=== PATIENT | female | born 1955 | race Caucasian/White ===

== ENCOUNTER 2025-02-26 13:41 | Outpatient (REF) | payer OTHER, SELFPAY ==
--- NOTE | ~2025-02-26 | XR_ITS ---
EXAMINATION: XR ENTIRE SPINE 1 VIEW HISTORY: SCOLIOSIS COMPARISON: There are no prior studies available for comparison. FINDINGS: A single AP view of the thoracolumbar spine is submitted for determination of scoliosis. There is levoscoliosis from T9 through T11 measuring approximately 7.1 degrees and dextroscoliosis from L1 through L3 measuring approximately 9.7 degrees. XR/XR scoliosis survey IMPRESSION: Scoliosis measurements as described. Electronically signed by: Renny Paulino MD 02/26/2025 02:17 PM RAFAEL ISLAS
--- OUTSIDE RECORDS SUMMARY | 2025-02-26 16:45 | XMS_ITS | Encounter Summary ---
Author Organization [facility] [place] [address] Care Team Providers Care Coremaker Supervisor Name Role Phone Physician, No Pcp Primary Care Provider Unavaila ble Encounter Details Date Type Department Care Team (Late st Contact Info) Description 01/30/2025 Results Follow-Up Endocrinology - [address] [phone] Rafael Morris MD [address] [place] [address] Social History Tobacco Use Types Packs/Day Years Used Date Smoking Tobacco: Former Cigarettes Q uit: 10/06/2019 Smokeless Tobacco: Never Alcohol Use Standard Drinks/Week Comments No 0 (1 standard drink = 0.6 oz pur e alcohol) Comments Unknown Sex and Gender Information Value Date Recorded Sex Assigned at Female 06/24/2021 10:27 PM EST Legal Sex Female 9:00 PM EST Gender Identity Female 06/24/2021 10:27 PM EST Sexual Orientation Straight 08/19/2024 9: 20 AM EDT documented as of this encounter Plan of Treatment Upcoming Encounters Date Type Department Care Team (Late st Contact Info) Description 03/17/2025 3:00 PM EST Office Visit Endocrinology - [place] [address] [place], [place] [phone] Mona Coombs MD [address] [place], [place] 05/01/2025 1:00 PM EST Office Visit Gastroenterology - [address] [place] [address] Linda Rhoades PA [address] [place] [phone] documented as of this encounter Visit Diagnoses Not on filedocumented in this encounter Care Teams Coremaker Supervisor Relationship Specialty Start Date End Date Physician, No Pcp PCP - General 05/14/24 documented as of this encounter
--- OUTSIDE RECORDS SUMMARY | 2025-02-26 16:45 | XMS_ITS ---
Author Name [facility] Organization Unknown Care Team Organization Name Specialty Phone Email Start Date End Da te [facility] 02/28/2022 12/10/19 24
--- OUTSIDE RECORDS SUMMARY | 2025-02-26 16:45 | XMS_ITS | Clinical Summary ---
Author Organization [facility] Address [address] [place] [address] Care Team Providers Care Java J2Ee Lead Name Role Phone Physician, No Pcp Primary Care Provider Unavaila ble Allergies Active Allergy Reactions Criticality Noted Date Comments Bupropion 12/05/2012 Other Reaction(s): UNK Ezetimibe High 06/23/2014 Other Reaction(s): FLU LIKE, Myalgia and Joint Pain Gabapentin High 12/05/2012 Other Reaction(s): UNK Nsaids (Non-Steroidal Anti-Inflammatory Drug) High 04/25/2022 Other Reaction(s): ITCHY Penicillins Anaphylaxis High 12/05/2012 Pregabalin 12/05/2012 Other Reaction(s): UNK Simvastatin 10/03/2013 Other Reaction(s): FLU LIKE, Myalgia and Joint Pain Sulfa (Sulfonamide Antibiotics) 12/05/2012 Varenicline 12/05/2012 Other Reaction(s): UNK Medications hydrocortisone 0.5 % topical cream Apply 1 Inch topically 2 times daily for 360 days. 4 Active levothyroxine (SYNTHROID, LEVOTHROID) 50 mcg tablet Take 1 tablet (50 mcg total) by mouth 1 (one) time each day before breakfast. 90 tablet 3 5 Active traZODone (DESYREL) 50 mg tablet Take 1 tablet (50 mg total) by mouth. at bedtime 5 Active linaCLOtide (Linzess) 290 mcg capsuleIndications :Irritable bowel syndrome with constipation Take 1 capsule (290 mcg total) by mouth 1 (one) time each day before breakfast. 90 each 3 5 10/30/19 26 Active evolocumab (Repatha SureClick) 140 mg/mL pen injector injectionIndicatio ns:Mixed hyperlipidemia Inject 1 mL (140 mg total) under the skin every 14 (fourteen) days. 6 mL 3 5 Active Active Problems Problem Noted Date Diagnosed Date Elevated coronary artery calcium score Assessment & Plan (01/19/2025 1:43 PM EDT): CT coronary calcium score in May 2024 was 55.4 (55.3 in the left anterior descending) which represents mild evidence of coronary artery disease. She denies anginal symptoms. Continue with aggressive risk factor modification. BP is robust in the office today, likely from use of Sudafed. Recommended switching to an allergy medication that will have less BP effect, such as Claritin. She reports BP is generally better controlled. Recommend continued monitoring. Adverse effect of drug 10/21/2024 Overview (10/21/2024): Trazodone (unclear reaction), baclofen, cyclobenzaprine, gabapentin, pregabalin (hand and foot swelling) Complex regional pain syndrome type 2 of lower e xtremity 10/21/2024 Paresthesia 10/21/2024 Overview (10/21/2024): History of Pain of right lower extremity 10/21/2024 Pain in the coccyx 10/21/2024 Thoracic back pain 10/21/2024 Irritable bowel syndrome with constipation 04/28 Assessment & Plan (10/29/2024 1:28 PM EDT): Improved although patient requesting Linzess [address] of the 145 mcg Orders: linaCLOtide (Linzess) 290 mcg capsule; Take 1 capsule (290 mcg total) by mouth 1 (one) time each day before breakfast. Assessment & Plan (07/28/2024 4:56 PM EDT): Starting Linzess 145 mcg. Potential side effects reviewed. Orders: linaCLOtide (Linzess) 145 mcg capsule; Take 1 capsule (145 mcg total) by mouth 1 (one) time each day before breakfast. Assessment & Plan (04/28/2024 1:30 PM EST): Acute on chronic RUQ pain/burn. Will obtain CT since last on 2021 and prior to last hernia repair. Rule out recurrent hernia, etc. Suspect symptom functional, due to adhesions or possible nerve related. Discussed trial amitriptyline if CT unremarkable. Cont daily prunes for constipation. Colon polyps 04/28/2024 Epigastric pain 03/26/2024 TBI (traumatic brain injury) (CMS/HCC V24, CMS/H CC V28) 03/26/2024 Overview (03/26/2024): ~2004- fall onto coccyx which broke then stood and passed out = suffered brain injury Subclinical hypothyroidism 11/08/2022 Assessment & Plan (07/17/2024 9:32 AM EDT): Patient reported symptoms of unintentional weight loss and night sweats. She does have a history of subclinical hypothyroidism on levothyroxine. Thyroid panel has been ordered. No change to medical therapy for now. Orders: Thyroid stimulating hormone with reflex to free t4 and free t3; Future Bradycardia 05/23/2022 Overview (03/26/2024): Last Assessment & Plan: She has chronic bradycardia for quite a few years and Holter monitor back to 2014 demonstrated average heart rate of 52 and minimal heart rate of 35. There was no other conduction disorder by EKG. I would like to repeat another Holter monitor. She has been using [employer] to record pulse rate and EKGs. Of note, her TSH has been chronically elevated. Is not clear whether she has chronic subclinical hypothyroidism. I will repeat another thyroid profile. Assessment & Plan (04/29/2024 12:53 PM EST): No obvious symptoms. Will continue to monitor heart rate and symptoms. Orders: ECG 12 lead Dyspnea 05/19/2022 Syncope 05/19/2022 Overview (03/26/2024): Last Assessment & Plan: I suspect the syncope was caused by combination of poor oral intake and vasodilation with hot shower. She also has a borderline bradycardia. By physical exam, she does not have a structural heart disease but would like to arrange echocardiogram. Left ovarian cyst 10/06/2021 Elevated TSH 07/12/2017 Hyperlipidemia 07/12/2017 Overview (03/26/2024): 10 year ASCVD =11% 06/22/18- working on quitting smoking/diet - holding on statin tx Last Assessment & Plan: Her LDL has been persistently high for past 3 years with highest level of over 200. Most recent LDL was 182. 10-year ASCVD risk is 7.4%. I would propose to start statin which can reduce the risk to 5.6%. She is getting nicotine patch currently hoping to quit smoking eventually. Assessment & Plan (01/19/2025 1:38 PM EDT): Last lipid panel reviewed and under excellent control with an LDL of 69 and total cholesterol of 145. Continue Repatha as prescribed. Continue with efforts to follow a low fat, heart healthy diet, increase exercise and maintain a healthy weight to maximize risk reduction. Assessment & Plan (07/17/2024 9:32 AM EDT): Patient has been intolerant to statins and Zetia in the past. Most recent lipid panel from September 2023 showed an LDL of 101. Goal LDL for patients with a history of CAD is <70. According to the [employer] 10-year ASCVD risk calculator, patient has a 10.6% (intermediate) risk. We discussed options of bempedoic acid and red rice yeast. We will start first with updating a lipid panel and I will contact the patient once results are received. Orders: Lipid panel with reflex to direct LDL; Future Assessment & Plan (04/29/2024 12:53 PM EST): Could not tolerate statins unfortunately. Will obtain coronary artery calcium score for further risk stratification. Orders: CT Heart Calcium Scoring wo Contrast; Future Chronic pain disorder 03/30/2017 GERD (gastroesophageal reflux disease) 7 Pulmonary nodules 03/30/2017 Left hip pain 10/10/2016 Depression with anxiety 09/15/2016 Degenerative disc disease, lumbar 03/10/2016 Vitamin D deficiency 07/13/2015 Low back pain 07/01/2015 Reflex sympathetic dystrophy 02/26/2015 Insomnia 11/12/2014 Encounters Date Type Department Care Team Description 01/30/2025 Results Follow-Up Endocrinology - [place] [address] [place] [phone] Rafael Morris MD 01/29/2025 1:38 PM EDT - 01/29/2025 11:59 PM EDT Hospital Encounter Ultrasound - [facility] [address] [place] [phone] Hypothyroidism, unspecified type Discharge Disposition: Home or Self Care 01/20/2025 1:30 PM EDT Office Visit Endocrinology - [place] [address] [place] [address] Rafael Morris MD Hypothyroidism, unspecified type (Primary Dx) 01/19/2025 1:10 PM EDT Office Visit [facility] - [facility] [address] [facility] [address] [place] [phone] Polly Vinson NP Hyperlipidemia, unspecified hyperlipidemia type (Primary Dx); Elevated coronary artery calcium score from Last 3 Months Immunizations Immunization Administration Dates Next Due COVID-19 (Moderna/Spikevax) 12yo and older 02/11/2023 Influenza Quadravalent, 0.5m l (Fluzone High-dose) 65yo and older 01/02/2023,01/09/2022,02/21/2021 Influenza Quadrivalent, 0.5m l, preservative free (Fluarix; FluLaval; Fluzone) ages 6mo and older (Afluria) 3yo and older 02/14/2018 Influenza trivalent, 0.5mL ( Fluzone High-dose) 65yo and older 03/10/2024 Influenza trivalent, 0.5mL, preservative free (Fluarix; FluLaval; Fluzone) ages 6mo and older (Afluria) 3 years and older 01/21/2018,01/23/2015 Influenza trivalent, MDCK, 0 .5mL, preservative free (Flucelvax) 6mo and older 04/26/2013 Influenza trivalent, with preservative (Fluzone; Afluria) 6mo and older 01/21/2018,01/20/2014,01/19/2014,2009 Influenza, Unspecified 02/20/2023 Influenza, live, intranasal, quadrivalent (FluMist) 2yo to less than 50yo 03/30/2017 Moderna SARS-CoV-2 COVID-19, mRNA, LNP-S, preservative free 08/31/2020 Pfizer SARS-CoV-2 COVID-19, mRNA, LNP-S, preservative free 02/27/2023 Pneumococcal conjugate 20 va lent (Prevnar 20, PCV 20) 2mo and older 02/27/2023,01/02/2023 RSV, bivalent, protein subun it RSVpreF, 0.5mL, Preservative Free (Arexvy) 50yo and older 01/02/2023 Surgical History Surgery Date Site/Laterality Comments CHOLECYSTECTOMY PROCEDURE: HISTORICAL CHOLECYSTECTOMY APPENDECTOMY PROCEDURE: HISTORICAL APPENDECTOMY UPPER GASTROINTESTINAL ENDOSCOPY 04/06/2014 PROCEDURE: CT UPPER GI ENDOSCOPY PERFORMED; COMMENT: small hiatal hernia, gastric bx no path change - Dr. Watkins OTHER SURGICAL HISTORY PROCEDURE: CT LAPS FULG/EXC OVARY VISCERA/PERITONEAL SURFACE; COMMENT: Ovarian cystectomy BILATERAL SALPINGOOPHORECTOMY 10/21/2021 - 11/20/2021 COLONOSCOPY 09/21/2021 - 10/20/2021 TA, left-sided diverticulosis, int rhoids (5yr) COLONOSCOPY 09/21/2008 - 10/20/2008 poor prep ESOPHAGOGASTRODUODENOSCOPY 07/22/2021 - 08/20/2021 Dr. Beckwith - nl per pt ESOPHAGOGASTRODUODENOSCOPY 03/23/2014 - 04/22/2014 small hiatal hernia, nl gastric bx ESOPHAGOGASTRODUODENOSCOPY 09/21/2008 - 10/20/2008 small hiatal hernia, mild gastritis, neg [facility] Medical History Medical History Date Comments Vitamin D deficiency 07/13/2015 DX:Vitamin D deficiency Reflex sympathetic dystrophy 02/26/2015 DX: Reflex sympathetic dystrophy Pulmonary nodules 03/30/2017 DX:Pulmonary n odules Low back pain 07/01/2015 DX:Low back pain Left hip pain 10/10/2016 DX:Left hip pain Hyperlipidemia 07/12/2017 DX:Hyperlipidemi a History of intracranial injury 01/17/2015 D X:History of intracranial injury GERD (gastroesophageal reflux disease) 7 DX:GERD (gastroesophageal reflux disease) Elevated TSH 07/12/2017 DX:Elevated TSH Degenerative disc disease, lumbar 03/10/2016 DX:Degenerative disc disease, lumbar Chronic pain disorder 03/30/2017 DX:Chronic pain disorder TBI (traumatic brain injury) ([facility] V24, [facility] V28) DX:TBI (traumatic brain inju ry) ([facility]); COMMENT: -2004- fall onto coccyx which broke then stood and passed out = suffered brain injury Tobacco abuse disorder 03/30/2017 DX:Tobacc o abuse disorder Epigastric pain DX:Epigastric pa in Chronic constipation Irritable bowel syndrome wit h constipation 04/28/2024 Family History Medical History Relation Name Comments Heart attack Father Other: Other Mother Relation Name Status Comments Father Maternal Grandfather old age Maternal Grandmother old age Mother Other Thyroid problem s in first cousins Paternal Grandfather old age Paternal Grandmother old age Social History Tobacco Use Types Packs/Day Years [...] Orientation Straight 08/19/2024 9: 20 AM EDT Obstetrics History Last Filed Vital Signs Vital Sign Reading Time Taken Comments Blood Pressure 132/73 01/20/2025 1:34 PM EDT Pulse 57 01/20/2025 1:34 PM EDT Temperature - - Respiratory Rate 13 01/20/2025 1:34 PM EDT Oxygen Saturation 98% 01/19/2025 1:00 PM EDT Inhaled Oxygen Concentration - - Weight 70.3 kg (155 lb) 01/20/2025 1:34 PM EDT Height 165.1 cm (5' 5 ) 01/20/2025 1:34 PM EDT Body Mass Index 25.79 01/20/2025 1:34 PM EDT Plan of Treatment Upcoming Encounters Date Type Department Care Team (Late st Contact Info) Description 03/17/2025 3:00 PM EST Office Visit Endocrinology - [place] [address] [place] [phone] Mona Coombs MD [address] [place] [address] 05/01/2025 1:00 PM EST Office Visit Gastroenterology - [address] [place] [phone] Linda Rhoades PA [address] [place] [phone] Health Maintenance Due Date Last Done Comments Breast Cancer Screening 1955 DTaP,Tdap,and Td Vaccines (1 - Tdap) 1973 Zoster Vaccines (1 of 2) 2004 Medicare Annual Wellness Visit 06/24/2021 Osteoporosis Screening (Bone Density Screening) 06/24/2021 Social Influencers of Health Screening 06/24/2021 Depression Screening 04/23/2024 04/27/2023 Falls Risk Assessment 04/27/2024 04/27/2023 COVID-19 Vaccine ( season) 2024 03/10/2024, 02/27/2023, 02/11/2023, Additional history exists Influenza Vaccine (#1) 2024 , 02/20/2023, 01/02/2023, Additional history exists Cholesterol Screening (Lipid Panel) 11/11/2029 11/11/2024, 08/01/2024, 09/28/2023, Additional history exists Colorectal Cancer Screening: Colonoscopy 04/29/2034 04/29/2024, 10/17/2021 Hepatitis C Screening Completed 04/30/2012 RSV Immunization Adult Patients Completed 01/02/2023 Pneumococcal Vaccine: 50+ Years Completed 02/27/2023, 01/02/2023 HIB Vaccines Aged Out No longer eligi ble based on patient's age to complete this topic HPV Vaccines Aged Out No longer eligi ble based on patient's age to complete this topic Hepatitis A Vaccines Aged Out No long er eligible based on patient's age to complete this topic Hepatitis B Vaccines Aged Out No long er eligible based on patient's age to complete this topic IPV Vaccines Aged Out No longer eligi ble based on patient's age to complete this topic MMR Vaccines Aged Out No longer eligi ble based on patient's age to complete this topic Meningococcal ACWY Vaccine Aged Out N o longer eligible based on patient's age to complete this topic Meningococcal B Vaccine Aged Out No l onger eligible based on patient's age to complete this topic RSV Immunization Patients Under 20 months Aged Out No longer eligible based on patient's age to complete this topic Varicella Vaccines Aged Out No longer eligible based on patient's age to complete this topic Procedures Procedure Name Priority Date/Time Associated Diagnosis Comments US HEAD NECK SOFT TISSUE Routine 01/29/2025 2:08 PM EDT Hypothyroidism, unspecified type ECG 12-LEAD Routine 01/19/2025 1:44 PM EDT Elevated coronary artery calcium score LIPID PANEL WITH REFLEX TO DIRECT LDL Routine 11/11/2024 1:22 PM EDT Essential hypertension, malignant Type II or unspecified type diabetes mellitus with renal manifestations, uncontrolled(250.42) (CMS/HCC V24, CMS/HCC V28) Senile arthritis Intrinsic asthma without status asthmaticus Postsurgical hypothyroidism Anemia, unspecified Avitaminosis D COLONOSCOPY Routine 04/29/2024 11:02 AM EST DEPRESSION SCREENING Routine 04/27/2023 FALLS RISK ASSESSMENT Routine 04/27/2023 HEPATITIS C SCREENING Routine 04/30/2012 from Last 3 Months or Most Recently Relevant to Health Maintenance Results * US Head Neck Soft Tissue (01/29/2025 2:08 PM EDT) Anatomical Region Laterality Modality Head and Neck Ultrasound 01/29/2025 4:52 PM EDT Impressions 01/29/2025 4:53 PM EDT Normal exam. -------- FINAL REPORT -------- Dictated By: Ana Rosa Romero Dictated Date: 01/29/2025 16:52 ET Assigned Physician: Ana Rosa Romero Reviewed and Electronically Signed By: Ana Rosa Romero Signed Date: 01/29/2025 16:53 ET Workstation ID: [id number] Transcribed By: Self Edit Transcribed Date: 01/29/2025 16:52 ET Narrative 01/29/2025 4:53 PM EDT US HEAD NECK SOFT TISSUE THYROID SOFT TISSUES NECK HISTORY: Nodule? Hypothyroidism. FINDINGS: The thyroid gland is normal in echotexture and demonstrates normal vascularity by color Doppler interrogation. No thyroid nodules are seen. The right lobe of the thyroid measures 3.2 x 1.3 x 1.3 cm. The left lobe of the thyroid measures 3.3 x 1.4 x 1.5 cm. The thyroid isthmus measures 2 mm in thickness. Procedure Note Ana Rosa Romero MD - 01/29/2025 US HEAD NECK SOFT TISSUE THYROID SOFT TISSUES NECK HISTORY: Nodule? Hypothyroidism. FINDINGS: The thyroid gland is normal in echotexture and demonstratesnormal vascularity by color Doppler interrogation. No thyroid nodules are seen. The right lobe of the thyroid measures 3.2 x1.3 x 1.3 cm. The left lobe of the thyroid measures 3.3 x 1.4 x 1.5 cm.The thyroid isthmus measures 2 mm in thickness. IMPRESSION: Normal exam. -------- FINAL REPORT -------- Dictated By: Ana Rosa Romero Dictated Date: 01/29/2025 16:52 ET Assigned Physician: Ana Rosa Romero Reviewed and Electronically Signed By: Ana Rosa Romero Signed Date: 01/29/2025 16:53 ET Workstation ID: [id number] Transcribed By: Self Edit Transcribed Date: 01/29/2025 16:52 ET Rafael Morris MD IMG US PROCEDURES Final Result * ECG 12 lead (01/19/2025 1:44 PM EDT) Ventricular Rate ECG 57 BPM GEMUSE Atrial Rate 57 BPM GEMUSE P-R Interval 144 ms GEMUSE QRS Duration 90 ms GEMUSE Q-T Interval 424 ms GEMUSE QTc 412 ms GEMUSE P Wave Bucks 80 degrees GEMUSE R Bucks 98 degrees GEMUSE T Bucks 46 degrees GEMUSE ECG Interpretation Sinus bradycardia with sinus arrhythmia Rightward axis Borderline ECG When compared with ECG of 29-APR-2024 10:44, T wave inversion no longer evident in Inferior leads Confirmed by Megan BAUMAN, AAKASH ([id number]) on 01/20/2025 9:10:01 AM GEMUSE 01/19/2025 1:14 PM EDT 01/20/2025 9:10 AM EDT Polly Vinson NP ECG ORDERABLES Edited Result - Final GEMUSE * Lipid panel with reflex to direct LDL (11/11/2024 1:22 PM EDT) Cholesterol 145 0 - 200 mg/dL LAB CHEMISTRY METHOD 11/11/2024 7:21 PM EDT [facility] Triglycerides 111 0 - 150 mg/dL LAB CHEMISTRY METHOD 11/11/2024 7:21 PM EDT [facility] HDL 54 >=40 mg/dL LAB CHEMISTRY METHOD 11/11/2024 7:21 PM EDT [facility] LDL Calculated 69 0 - 100 mg/dL LAB CHEMISTRY METHOD 11/11/2024 7:21 PM EDT [facility] VLDL Cholesterol Bradly 22.2 mg/dL LAB CHEMISTRY METHOD 11/11/2024 7:21 PM EDT [facility] Non HDL Chol. (LDL+VLDL) 91 <145 mg/dL LAB CHEMISTRY METHOD 11/11/2024 7:21 PM EDT [facility] Chol/HDL Ratio 2.7 0.0 - 4.4 LAB CHEMISTRY METHOD 11/11/2024 7:21 PM EDT [facility] Blood Venous blood specimen / Unknown Venipuncture / Unknown 11/11/2024 1:22 PM EDT 11/11/2024 1:22 PM EDT Result [facility] Judd Etienne MD LAB BLOOD ORDERABLES Final Res ult [facility] [address] [place] [address], [place] [phone] * COLONOSCOPY (04/29/2024 11:02 AM EST) Anatomical Region Laterality Modality Endoscopy Result [facility] Historical Provider GI~PROCEDURE ORDERABLES F inal Result * Falls Risk Assessment (04/27/2023) Pathologist [facility] Falls Risk Assessment abstracted Historical Provider HEALTH MAINTENANCE Final Result * Depression Screening (04/27/2023) Pathologist [facility] Depression Screening abstracted Result [facility] Historical Provider HEALTH MAINTENANCE Final Result * Hepatitis C Screening (04/30/2012) Pathologist [facility] Hepatitis C Screening abstracted Historical Provider HEALTH MAINTENANCE Final Result from Last 3 Months or Most Recently Relevant to Health Maintenance Insurance [facility]IC[facility] Member Subscriber Plan / Payer (Ef fective 2023-Present) Name:Garland Shoemaker Relation to Subscriber:Self Name:Garland Shoemaker Payer ID:[id number] Group ID:[id number] Type:Not on file Address: [place] [id number] [place] [id number] Advance Directives Documents on File Type Date Recorded Patient Collision Center Manager Expl anation Health Care Decision (hx) 11/01/2021 AD QUINTERO DIRECTIVE Health Care Decision (hx) 11/01/2021 AD QUINTERO DIRECTIVE Health Care Decision (hx) 11/01/2021 AD QUINTERO DIRECTIVE Health Care Decision (hx) 11/01/2021 AD QUINTERO DIRECTIVE Health Care Decision (hx) 11/01/2021 AD QUINTERO DIRECTIVE Health Care Decision (hx) 11/01/2021 AD QUINTERO DIRECTIVE Health Care Decision (hx) 11/01/2021 AD QUINTERO DIRECTIVE Care Teams [employer] Lead Relationship Specialty Start Date End Date Physician, No Pcp PCP - General 05/14/24
== END 2025-02-26 13:42 | disposition home or self-care (01) ==
LOC: HO.XRAY 13:41
PROVIDERS: PCP Internal Medicine; Visit Provider Physical Medicine & Rehabilitation
DX: M41.9 Scoliosis, unspecified (principal)
CPT/HCPCS: 72082

== ENCOUNTER → 2025-02-26 14:04 | Outpatient (BNV) | payer OTHER, SELFPAY | PROVIDERS: PCP Internal Medicine; Visit Provider Radiology Diagnostic Radiology | DX: M41.85 Other forms of scoliosis, thoracolumbar region (principal) | CPT/HCPCS: 72082 ==